=== PATIENT | female | born 1945 | race Two or more races ===

== ENCOUNTER 2022-09-19 09:30 | Inpatient (IN) | payer MEDICAID, OTHER ==
[~2022-09-19] VITALS: Ht 154.9 cm; Wt 70.9 kg
[2022-09-19 11:56] LABS: Basophils # (auto) 0 10 ^3/uL (0-0.2); Basophils % (auto) 0.3 % (0.0-2.0); Eosinophils # (auto) 0 10 ^3/uL (0-0.8); Eosinophils % (auto) 0.4 % (0.0-7.0); Hematocrit 49.9 % (36.0-46.0); Hemoglobin 16.9 g/dL (12.2-16.2); Lymphocytes # (auto) 1.4 10 ^3/uL (0.4-5.4); Lymphocytes % (auto) 11.4 % (10.0-50.0); Mean Corpuscular Hemoglobin 30.2 pg (28.0-32.0); Mean Corpuscular Hgb Conc. 33.9 g/dL (32.0-36.0); Monocytes # (auto) 0.4 10 ^3/uL (0-1.3); Monocytes % (auto) 3.3 % (0.0-12.0); Neutrophils # (auto) 10.4 10 ^3/uL (1.6-8.6); Neutrophils % (auto) 84.6 % (37.0-80.0); Nucleated Red Blood Cells % 0.1 %; Red Cell Distribution Width 13.4 % (11.8-14.3); White Blood Cell 12.3 10^3/uL (4.4-10.8)
[2022-09-19 12:19] LABS: Albumin 3.3 g/dL (3.4-5.0); Anion Gap 12 (5-15); Blood Urea Nitrogen 37 mg/dL (7-18); Calcium 9.1 mg/dL (8.5-10.1); Carbon Dioxide 17 mmol/L (21-32); Chloride 113 mmol/L (98-107); Glucose 162 mg/dL (74-106); Potassium 4.5 mmol/L (3.5-5.1); Sodium 142 mmol/L (136-145)
[2022-09-19 12:23] LABS: Alanine Aminotransferase 18 U/L (13-56); Alkaline Phosphatase 46 U/L (45-117); Aspartate Aminotransferase 19 U/L (15-37); BUN/Creatinine Ratio 15.7; Bilirubin, Total 0.3 mg/dL (0.2-1.0); GFR African American 26 mL/min; GFR Non-African American 21 mL/min; Total Protein 7.7 g/dL (6.4-8.2)
[2022-09-19] MEDS ORDERED: NITROGLYCERIN 0.4 MG SL TAB SL PRN (16:15)
[2022-09-19] MEDS ORDERED: MORPHINE SULFATE INJ 2 MG/ml SYRG IV PRN (16:15)
[2022-09-19] MEDS ORDERED: SODIUM CHLORIDE 0.9% 500 ML IV ONE (16:30)
[2022-09-19] MEDS ORDERED: ASPirin 81 mg TAB PO ONE (16:30)
[2022-09-19] MEDS ORDERED: SOD CHL 0.45% 1,000 ML IV SCH (16:30)
[2022-09-19] MEDS: SODIUM CHLORIDE 0.9% 1,000 ML IV SCH (17:07)
[2022-09-19 17:52] LABS: Urine Bacteria MANY /hpf (None Seen); Urine Blood 1+ /uL (Negative); Urine Mucus FEW (None Seen); Urine Specific Gravity 1.018 (1.001-1.035); Urine WBC 647 /hpf (0 - 5)
[2022-09-19 18:49] LABS: Cholesterol 168 mg/dL (< 200)
[2022-09-19 18:52] LABS: HDL Cholesterol 38 mg/dL (40-59); LDL Cholesterol 112 mg/dL (< 100); Triglycerides 162 mg/dL (< 150)
[2022-09-19] MEDS ORDERED: cefTRIAXone 1GM/50ML D5W 50 ML IV ONE (20:15)
[2022-09-19] MEDS: ATORVASTATIN 20 MG TAB PO SCH (23:04)
[2022-09-20] MEDS: SODIUM CHLORIDE 0.9% 1,000 ML IV SCH ×3 (03:00→21:21)
[2022-09-20 06:11] LABS: Basophils # (auto) 0 10 ^3/uL (0-0.2); Basophils % (auto) 0.4 % (0.0-2.0); Eosinophils # (auto) 0.1 10 ^3/uL (0-0.8); Eosinophils % (auto) 1.1 % (0.0-7.0); Hematocrit 37.2 % (36.0-46.0); Hemoglobin 13.1 g/dL (12.2-16.2); Lymphocytes # (auto) 2.2 10 ^3/uL (0.4-5.4); Lymphocytes % (auto) 33.7 % (10.0-50.0); Mean Corpuscular Hemoglobin 30.7 pg (28.0-32.0); Mean Corpuscular Hgb Conc. 35.2 g/dL (32.0-36.0); Mean Corpuscular Volume 87.3 fL (80.0-100.0); Monocytes # (auto) 0.4 10 ^3/uL (0-1.3); Monocytes % (auto) 6.4 % (0.0-12.0); Neutrophils # (auto) 3.8 10 ^3/uL (1.6-8.6); Neutrophils % (auto) 58.4 % (37.0-80.0); Nucleated Red Blood Cells % 0.1 %; Red Blood Cells 4.26 10^6/uL (4.0-5.20); Red Cell Distribution Width 13.3 % (11.8-14.3); White Blood Cell 6.5 10^3/uL (4.4-10.8)
[2022-09-20 06:25] LABS: Albumin 3.2 g/dL (3.4-5.0); Calcium 8.7 mg/dL (8.5-10.1); Potassium 3.7 mmol/L (3.5-5.1)
[2022-09-20 06:30] LABS: Bilirubin, Total 0.5 mg/dL (0.2-1.0); Total Protein 7.2 g/dL (6.4-8.2)
[2022-09-20] MEDS ORDERED: LORazepam 2MG/ML-1ML VIAL IV PRN (09:45)
[2022-09-20] MEDS ORDERED: MEMANTINE HCL 5 MG TAB PO SCH (10:00)
[2022-09-20 10:08] LABS: Folate (Folic Acid) 8.24 ng/mL (5.38-24)
[2022-09-20] MEDS: ENOXAPARIN SOD 30 MG/0.3 ML SYRINGE SC SCH (10:23)
[2022-09-20] MEDS: ASPirin 81 mg TAB PO SCH (10:23)
[2022-09-20] MEDS: cefTRIAXone 1GM/50ML D5W 50 ML IV SCH (21:20)
[2022-09-20] MEDS: ATORVASTATIN 20 MG TAB PO SCH (21:21)
[2022-09-20] MEDS: TEMAZEPAM 15 MG CAP PO PRN (21:54)
[2022-09-20] MEDS ORDERED: LISI40TA11 PO (22:05)
[2022-09-20] MEDS ORDERED: MEMA1TAB5 PO (22:05)
[2022-09-20] MEDS ORDERED: ATOR20TA50 PO (22:05)
[2022-09-20] MEDS ORDERED: DONE1TAB88 PO (22:05)
[2022-09-20] MEDS ORDERED: ESCI20TA PO (22:05)
[2022-09-21 05:00] VITALS: BP 141/84
[2022-09-21 05:37] LABS: Basophils # (auto) 0 10 ^3/uL (0-0.2); Basophils % (auto) 0.3 % (0.0-2.0); Eosinophils # (auto) 0.2 10 ^3/uL (0-0.8); Eosinophils % (auto) 3.3 % (0.0-7.0); Hematocrit 39.3 % (36.0-46.0); Hemoglobin 13.4 g/dL (12.2-16.2); Lymphocytes # (auto) 2.7 10 ^3/uL (0.4-5.4); Lymphocytes % (auto) 41.9 % (10.0-50.0); Mean Corpuscular Hemoglobin 30.3 pg (28.0-32.0); Mean Corpuscular Hgb Conc. 34.1 g/dL (32.0-36.0); Mean Corpuscular Volume 88.9 fL (80.0-100.0); Monocytes # (auto) 0.5 10 ^3/uL (0-1.3); Monocytes % (auto) 7.1 % (0.0-12.0); Neutrophils # (auto) 3.1 10 ^3/uL (1.6-8.6); Neutrophils % (auto) 47.4 % (37.0-80.0); Nucleated Red Blood Cells % 0.1 %; Red Blood Cells 4.42 10^6/uL (4.0-5.20); Red Cell Distribution Width 13.1 % (11.8-14.3); White Blood Cell 6.5 10^3/uL (4.4-10.8)
[2022-09-21 05:58] LABS: Potassium 4.1 mmol/L (3.5-5.1)
[2022-09-21 06:06] LABS: Albumin 3.3 g/dL (3.4-5.0); Bilirubin, Total 0.4 mg/dL (0.2-1.0); Total Protein 7.2 g/dL (6.4-8.2)
[2022-09-21 09:00] VITALS: BP 146/85
[2022-09-21] MEDS: ASPirin 81 mg TAB PO SCH (09:06)
[2022-09-21] MEDS: ENOXAPARIN SOD 30 MG/0.3 ML SYRINGE SC SCH (09:07)
[2022-09-21] MEDS: SODIUM CHLORIDE 0.9% 1,000 ML IV SCH (09:07)
[2022-09-21 12:40] VITALS: BP 136/59
[2022-09-21 16:44] VITALS: BP 144/60
[2022-09-21] MEDS: TEMAZEPAM 15 MG CAP PO PRN (19:51)
[2022-09-21] MEDS: ATORVASTATIN 20 MG TAB PO SCH (21:02)
[2022-09-21] MEDS: cefTRIAXone 1GM/50ML D5W 50 ML IV SCH (21:25)
[2022-09-22] MEDS: SODIUM CHLORIDE 0.9% 1,000 ML IV SCH ×3 (02:00→10:41)
[2022-09-22 05:00] VITALS: BP 140/70
[2022-09-22 05:57] LABS: Basophils # (auto) 0 10 ^3/uL (0-0.2); Basophils % (auto) 0.3 % (0.0-2.0); Eosinophils # (auto) 0.3 10 ^3/uL (0-0.8); Eosinophils % (auto) 4.1 % (0.0-7.0); Hematocrit 36.3 % (36.0-46.0); Hemoglobin 12.6 g/dL (12.2-16.2); Lymphocytes # (auto) 3.1 10 ^3/uL (0.4-5.4); Lymphocytes % (auto) 45.4 % (10.0-50.0); Mean Corpuscular Hemoglobin 30.5 pg (28.0-32.0); Mean Corpuscular Hgb Conc. 34.8 g/dL (32.0-36.0); Mean Corpuscular Volume 87.6 fL (80.0-100.0); Monocytes # (auto) 0.5 10 ^3/uL (0-1.3); Monocytes % (auto) 7.1 % (0.0-12.0); Neutrophils % (auto) 43.1 % (37.0-80.0); Nucleated Red Blood Cells % 0.2 %; Red Blood Cells 4.14 10^6/uL (4.0-5.20); White Blood Cell 6.9 10^3/uL (4.4-10.8)
[2022-09-22 06:24] LABS: Calcium 8.3 mg/dL (8.5-10.1)
[2022-09-22 06:28] LABS: Albumin 2.9 g/dL (3.4-5.0); BUN/Creatinine Ratio 19.2; Bilirubin, Total 0.2 mg/dL (0.2-1.0); Total Protein 6.1 g/dL (6.4-8.2)
[2022-09-22 08:55] VITALS: BP 140/77
[2022-09-22] MEDS: ASPirin 81 mg TAB PO SCH (10:00)
[2022-09-22] MEDS: ENOXAPARIN SOD 40 MG/0.4 ML SYRINGE SC SCH (10:00)
[2022-09-22 12:48] VITALS: BP 150/73
[2022-09-22 16:58] VITALS: BP 130/63
[2022-09-22] MEDS: cefTRIAXone 1GM/50ML D5W 50 ML IV SCH (21:13)
[2022-09-22] MEDS: ATORVASTATIN 20 MG TAB PO SCH (21:32)
[2022-09-22 22:00] VITALS: BP 131/62
[2022-09-23 04:00] VITALS: BP 148/68
[2022-09-23] MEDS: SODIUM CHLORIDE 0.9% 1,000 ML IV SCH ×2 (04:45→09:48)
[2022-09-23 05:26] LABS: Basophils # (auto) 0 10 ^3/uL (0-0.2); Basophils % (auto) 0.3 % (0.0-2.0); Eosinophils # (auto) 0.3 10 ^3/uL (0-0.8); Eosinophils % (auto) 4.9 % (0.0-7.0); Hemoglobin 12.4 g/dL (12.2-16.2); Lymphocytes # (auto) 3.1 10 ^3/uL (0.4-5.4); Lymphocytes % (auto) 45.6 % (10.0-50.0); Mean Corpuscular Hemoglobin 30.4 pg (28.0-32.0); Mean Corpuscular Hgb Conc. 34.3 g/dL (32.0-36.0); Mean Corpuscular Volume 88.4 fL (80.0-100.0); Monocytes # (auto) 0.5 10 ^3/uL (0-1.3); Monocytes % (auto) 6.7 % (0.0-12.0); Neutrophils # (auto) 2.8 10 ^3/uL (1.6-8.6); Neutrophils % (auto) 42.5 % (37.0-80.0); Nucleated Red Blood Cells % 0.1 %; Red Blood Cells 4.07 10^6/uL (4.0-5.20); White Blood Cell 6.7 10^3/uL (4.4-10.8)
[2022-09-23 05:59] LABS: Potassium 4.1 mmol/L (3.5-5.1)
[2022-09-23 06:05] LABS: Albumin 2.9 g/dL (3.4-5.0); Bilirubin, Total 0.4 mg/dL (0.2-1.0); Calcium 8.6 mg/dL (8.5-10.1); Total Protein 6.1 g/dL (6.4-8.2)
[2022-09-23 08:30] VITALS: BP 154/72
[2022-09-23] MEDS ORDERED: VANCOMYCIN PER PHARMACY 0 MG IV SCH (08:30)
[2022-09-23] MEDS ORDERED: VANCOMYCIN 1GM/250ML 250 ML IV SCH (09:00)
[2022-09-23] MEDS: ENOXAPARIN SOD 40 MG/0.4 ML SYRINGE SC SCH (09:44)
[2022-09-23] MEDS: ASPirin 81 mg TAB PO SCH (09:44)
[2022-09-23 13:00] VITALS: BP 147/74
[2022-09-23] MEDS ORDERED: ASPI-325 PO (14:30)
[2022-09-23] MEDS ORDERED: ESCI20TA PO (14:30)
[2022-09-23] MEDS ORDERED: LISI40TA11 PO (14:30)
[2022-09-23] MEDS ORDERED: ATOR20TA50 PO (14:30)
[2022-09-23] MEDS ORDERED: LEVE500T32 PO (14:33)
[2022-09-24] MEDS ORDERED: CITALOPRAM HYDROBR 20 MG TAB PO SCH (10:00)
== END 2022-09-23 17:00 | disposition home or self-care (01) | DRG 53 ==
LOC: EDBD 09:30 → ER 09:30 → TELE 16:15 → TELE-EAST 20:56
PROVIDERS: ADMIT Registered Nurse; ATTEND Student in an Organized Health Care Education/Training Program
DX: R56.9 Unspecified convulsions (principal); I63.89 Other cerebral infarction; N17.9 Acute kidney failure, unspecified; I95.9 Hypotension, unspecified; R65.10 Systemic inflammatory response syndrome (SIRS) of non-infectious origin without acute organ dysfunction; G30.9 Alzheimer's disease, unspecified; F02.80 Dementia in other diseases classified elsewhere, unspecified severity, without behavioral disturbance, psychotic disturbance, mood disturbance, and anxiety; N18.4 Chronic kidney disease, stage 4 (severe); R00.1 Bradycardia, unspecified; E86.0 Dehydration; E78.5 Hyperlipidemia, unspecified; I12.9 Hypertensive chronic kidney disease with stage 1 through stage 4 chronic kidney disease, or unspecified chronic kidney disease; R73.9 Hyperglycemia, unspecified; Z20.822 Contact with and (suspected) exposure to COVID-19; B96.20 Unspecified Escherichia coli [E. coli] as the cause of diseases classified elsewhere; N39.0 Urinary tract infection, site not specified; R73.03 Prediabetes; Z79.899 Other long term (current) drug therapy; Z86.73 Personal history of transient ischemic attack (TIA), and cerebral infarction without residual deficits; Z90.710 Acquired absence of both cervix and uterus
CPT/HCPCS: 36415; 70450; 70551; 71045; 80053; 80061; 81001; 82607; 82746; 83036; 84443; 85025; 87040; 87086; 87088; 87186; 87205; 87426; 93005; 93306; 93886; 95819; G0378; J0696

== ENCOUNTER 2023-03-18 19:39 | Inpatient (IN) | payer MEDICAID ==
[~2023-03-18] VITALS: Ht 157.5 cm; Wt 70.8 kg
[~2023-03-18 19:39] MED LIST: ASPI-325 PO; ATOR20TA50 PO; ESCI20TA PO; LEVE500T40 PO; LISI40TA16 PO
[2023-03-18 20:27] LABS: Basophils # (auto) 0 10 ^3/uL (0-0.2); Basophils % (auto) 0.1 % (0.0-2.0); Eosinophils # (auto) 0.1 10 ^3/uL (0-0.8); Eosinophils % (auto) 0.4 % (0.0-7.0); Hematocrit 49.2 % (36.0-46.0); Hemoglobin 16.4 g/dL (12.2-16.2); Lymphocytes # (auto) 3.7 10 ^3/uL (0.4-5.4); Lymphocytes % (auto) 24.2 % (10.0-50.0); Mean Corpuscular Hemoglobin 30.2 pg (28.0-32.0); Mean Corpuscular Hgb Conc. 33.3 g/dL (32.0-36.0); Mean Corpuscular Volume 90.9 fL (80.0-100.0); Monocytes # (auto) 0.7 10 ^3/uL (0-1.3); Monocytes % (auto) 4.5 % (0.0-12.0); Neutrophils # (auto) 10.9 10 ^3/uL (1.6-8.6); Neutrophils % (auto) 70.8 % (37.0-80.0); Nucleated Red Blood Cells % 0.1 %; Red Blood Cells 5.42 10^6/uL (4.0-5.20); Red Cell Distribution Width 14.4 % (11.8-14.3); White Blood Cell 15.5 10^3/uL (4.4-10.8)
[2023-03-18 20:42] LABS: Albumin 3.3 g/dL (3.4-5.0); Calcium 8.7 mg/dL (8.5-10.1); Potassium 3.7 mmol/L (3.5-5.1)
[2023-03-18 20:46] LABS: Bilirubin, Total 0.6 mg/dL (0.2-1.0); Total Protein 7.6 g/dL (6.4-8.2)
[2023-03-18] MEDS ORDERED: PIPERACILLIN-TAZOB 3.375GM 100 ML IV ONE (21:00)
[2023-03-18] MEDS ORDERED: MAGNESIUM SULFATE 1GM/100ML 100 ML IV ONE (21:00)
[2023-03-18] MEDS ORDERED: VANCOMYCIN 1GM/250ML 250 ML IV ONE (21:00)
[2023-03-18] MEDS ORDERED: LACTATED RINGER'S 1,900 ML IV ONE (21:00)
[2023-03-18 22:14] LABS: Lactic Acid w/Reflex 2.7 mmol/L (0.4-2.0)
[2023-03-18] MEDS ORDERED: ONDANSETRON HCL 4 MG/2 ML VIAL IV PRN (22:15)
[2023-03-18] MEDS ORDERED: DOCUSATE SOD 100 MG CAP PO PRN (22:15)
[2023-03-18] MEDS ORDERED: VANCOMYCIN PER PHARMACY 0 MG IV SCH (22:15)
[2023-03-18] MEDS ORDERED: HYDROcodone-ACET 5/325MG TAB PO PRN (22:15)
[2023-03-18] MEDS ORDERED: ACETAMINOPHEN 325 MG TAB PO PRN (22:15)
[2023-03-18] MEDS ORDERED: levETIRAcetam 500 MG/5ML INJ IV ONE ×2 (22:36→22:40)
[2023-03-18] MEDS ORDERED: LORazepam 2MG/ML-1ML VIAL IV PRN (23:00)
[2023-03-18] MEDS ORDERED: OXcarbazepine 300 MG TAB PO ONE (23:45)
[2023-03-19] MEDS ORDERED: MORPHINE SULFATE INJ 2 MG/ml SYRG IV PRN
[2023-03-19] MEDS ORDERED: OXcarbazepine 300 MG TAB PO ONE
[2023-03-19] MEDS ORDERED: NITROGLYCERIN 0.4 MG SL TAB SL PRN
[2023-03-19 00:50] VITALS: PULSE 51; RESP 15; O2SAT 96
[2023-03-19] MEDS: LACTATED RINGER'S 1,000 ML IV SCH ×2 (02:16→12:48)
[2023-03-19 07:06] LABS: Basophils # (auto) 0 10 ^3/uL (0-0.2); Basophils % (auto) 0.2 % (0.0-2.0); Eosinophils # (auto) 0 10 ^3/uL (0-0.8); Eosinophils % (auto) 0.3 % (0.0-7.0); Hematocrit 39.7 % (36.0-46.0); Hemoglobin 13.4 g/dL (12.2-16.2); Lymphocytes # (auto) 2.6 10 ^3/uL (0.4-5.4); Lymphocytes % (auto) 22.6 % (10.0-50.0); Mean Corpuscular Hemoglobin 30.1 pg (28.0-32.0); Mean Corpuscular Hgb Conc. 33.7 g/dL (32.0-36.0); Mean Corpuscular Volume 89.5 fL (80.0-100.0); Monocytes # (auto) 0.6 10 ^3/uL (0-1.3); Monocytes % (auto) 5.7 % (0.0-12.0); Neutrophils % (auto) 71.2 % (37.0-80.0); Nucleated Red Blood Cells % 0.1 %; Red Blood Cells 4.43 10^6/uL (4.0-5.20); White Blood Cell 11.3 10^3/uL (4.4-10.8)
[2023-03-19 07:35] VITALS: PULSE 51; RESP 21; O2SAT 96
[2023-03-19 07:58] LABS: Calcium 7.6 mg/dL (8.5-10.1); Potassium 3.6 mmol/L (3.5-5.1)
[2023-03-19 08:03] LABS: Albumin 2.5 g/dL (3.4-5.0); Bilirubin, Total 0.8 mg/dL (0.2-1.0); Total Protein 5.8 g/dL (6.4-8.2)
[2023-03-19] MEDS: cefTRIAXone 1GM/50ML D5W 50 ML IV SCH (09:25)
[2023-03-19] MEDS: ASPirin 81 mg TAB PO SCH (11:28)
[2023-03-19] MEDS: OXcarbazepine 300 MG TAB PO SCH ×2 (11:28→22:40)
[2023-03-19 12:39] LABS: Urine Bacteria FEW /hpf (None Seen); Urine Blood 2+ /uL (Negative); Urine Budding Yeast MODERATE /hpf (None Seen); Urine Clarity CLOUDY (Clear); Urine Color Yellow (Yellow); Urine Protein, UAD 1+ (Negative); Urine Specific Gravity 1.018 (1.001-1.035); Urine Urobilinogen Normal (Negative); Urine WBC 1395 /hpf (0 - 5); Urine WBC Clumps PRESENT /hpf (None Seen)
[2023-03-19] MEDS ORDERED: VANCOMYCIN 500 MG in D5W 5% 100 ML IV ONE (16:00)
[2023-03-19 22:02] VITALS: BP 119/68; PULSE 72; RESP 18; TEMP 98; O2SAT 98
[2023-03-19 22:32] VITALS: BP 119/68; PULSE 72; RESP 18; TEMP 98; O2SAT 68
[2023-03-20] MEDS: LACTATED RINGER'S 1,000 ML IV SCH ×3 (00:55→23:31)
[2023-03-20 05:00] VITALS: BP 142/84; PULSE 55; RESP 18; TEMP 97.9; O2SAT 97
[2023-03-20 08:00] VITALS: PULSE 47
[2023-03-20] MEDS: ASPirin 81 mg TAB PO SCH (10:18)
[2023-03-20] MEDS: OXcarbazepine 300 MG TAB PO SCH ×2 (10:18→22:03)
[2023-03-20] MEDS: cefTRIAXone 1GM/50ML D5W 50 ML IV SCH (11:23)
[2023-03-20 19:50] VITALS: PULSE 64
[2023-03-20 21:36] VITALS: BP 137/71; PULSE 60; RESP 20; TEMP 98.3; O2SAT 95
[2023-03-21] VITALS (10 sets, daily range): BP systolic 130–178; BP diastolic 65–99; PULSE 49–64; RESP 18–22; TEMP 97.6–98.7; O2SAT 96–99
[2023-03-21] MEDS: OXcarbazepine 300 MG TAB PO SCH (09:41)
[2023-03-21] MEDS: cefTRIAXone 1GM/50ML D5W 50 ML IV SCH (09:41)
[2023-03-21] MEDS: ASPirin 81 mg TAB PO SCH (09:41)
[2023-03-21] MEDS: LISINOPRIL 20 MG TAB PO SCH (09:50)
[2023-03-21] MEDS: amLODIPine BESYLATE 5 MG TAB PO SCH (13:09)
[2023-03-21 13:53] LABS: Basophils # (auto) 0 10 ^3/uL (0-0.2); Basophils % (auto) 0.3 % (0.0-2.0); Eosinophils # (auto) 0.2 10 ^3/uL (0-0.8); Eosinophils % (auto) 2.5 % (0.0-7.0); Hematocrit 39.1 % (36.0-46.0); Hemoglobin 13.5 g/dL (12.2-16.2); Lymphocytes # (auto) 2.7 10 ^3/uL (0.4-5.4); Lymphocytes % (auto) 39.9 % (10.0-50.0); Mean Corpuscular Hemoglobin 30.3 pg (28.0-32.0); Mean Corpuscular Hgb Conc. 34.6 g/dL (32.0-36.0); Mean Corpuscular Volume 87.4 fL (80.0-100.0); Monocytes # (auto) 0.4 10 ^3/uL (0-1.3); Monocytes % (auto) 6.4 % (0.0-12.0); Neutrophils # (auto) 3.5 10 ^3/uL (1.6-8.6); Neutrophils % (auto) 50.9 % (37.0-80.0); Nucleated Red Blood Cells % 0.1 %; Red Blood Cells 4.48 10^6/uL (4.0-5.20); Red Cell Distribution Width 13.6 % (11.8-14.3); White Blood Cell 6.9 10^3/uL (4.4-10.8)
[2023-03-21 16:09] LABS: Alanine Aminotransferase 13 U/L (7-40); Albumin 2.8 g/dL (3.4-5.0); Anion Gap 8 (5-15); Blood Urea Nitrogen 13 mg/dL (7-18); Calcium 8.3 mg/dL (8.7-10.4); Carbon Dioxide 20 mmol/L (21-32); Chloride 114 mmol/L (98-107); Glucose 98 mg/dL (74-106); Potassium 4.4 mmol/L (3.5-5.1); Sodium 142 mmol/L (136-145)
[2023-03-21 16:10] LABS: Alkaline Phosphatase 66 U/L (45-117); Aspartate Aminotransferase 30 U/L (15-37); BUN/Creatinine Ratio 12.5 (10.0-20.0); Bilirubin, Total 0.6 mg/dL (0.2-1.0); GFR African American 66 mL/min; GFR Non-African American 55 mL/min; Total Protein 6.3 g/dL (6.4-8.2)
[2023-03-21] MEDS: LACTATED RINGER'S 1,000 ML IV SCH (20:53)
[2023-03-21] MEDS: DONEPEZIL HYDROCHLORIDE 5 MG TAB PO SCH (21:40)
[2023-03-21] MEDS: ATORVASTATIN 20 MG TAB PO SCH (21:41)
[2023-03-21] MEDS: MEMANTINE HCL 5 MG TAB PO SCH (21:41)
[2023-03-22 05:00] VITALS: BP 169/79; PULSE 51; RESP 18; TEMP 98; O2SAT 96
[2023-03-22] MEDS: LACTATED RINGER'S 1,000 ML IV SCH (06:15)
[2023-03-22 08:00] VITALS: PULSE 45
[2023-03-22 09:17] LABS: Basophils # (auto) 0 10 ^3/uL (0-0.2); Basophils % (auto) 0.4 % (0.0-2.0); Eosinophils # (auto) 0.2 10 ^3/uL (0-0.8); Eosinophils % (auto) 3.3 % (0.0-7.0); Hematocrit 43.6 % (36.0-46.0); Lymphocytes # (auto) 2.6 10 ^3/uL (0.4-5.4); Lymphocytes % (auto) 36.6 % (10.0-50.0); Mean Corpuscular Hemoglobin 30.4 pg (28.0-32.0); Mean Corpuscular Hgb Conc. 34.4 g/dL (32.0-36.0); Mean Corpuscular Volume 88.2 fL (80.0-100.0); Monocytes # (auto) 0.4 10 ^3/uL (0-1.3); Monocytes % (auto) 5.4 % (0.0-12.0); Neutrophils # (auto) 3.9 10 ^3/uL (1.6-8.6); Neutrophils % (auto) 54.3 % (37.0-80.0); Nucleated Red Blood Cells % 0.2 %; Red Blood Cells 4.94 10^6/uL (4.0-5.20); Red Cell Distribution Width 13.4 % (11.8-14.3); White Blood Cell 7.2 10^3/uL (4.4-10.8)
[2023-03-22] MEDS: cefTRIAXone 1GM/50ML D5W 50 ML IV SCH (09:20)
[2023-03-22] MEDS: LISINOPRIL 20 MG TAB PO SCH (09:23)
[2023-03-22] MEDS: MEMANTINE HCL 5 MG TAB PO SCH ×2 (09:24→21:08)
[2023-03-22] MEDS: ASPirin 81 mg TAB PO SCH (09:24)
[2023-03-22] MEDS: amLODIPine BESYLATE 5 MG TAB PO SCH (09:24)
[2023-03-22 09:55] LABS: Potassium 3.7 mmol/L (3.5-5.1)
[2023-03-22 10:00] LABS: BUN/Creatinine Ratio 11.9 (10.0-20.0); Calcium 8.8 mg/dL (8.7-10.4)
[2023-03-22 17:00] VITALS: BP 151/78; PULSE 66; RESP 17; TEMP 98.1; O2SAT 94
[2023-03-22 19:30] VITALS: PULSE 68; RESP 17
[2023-03-22 20:00] VITALS: PULSE 67
[2023-03-22] MEDS: DONEPEZIL HYDROCHLORIDE 5 MG TAB PO SCH (21:08)
[2023-03-22] MEDS: ATORVASTATIN 20 MG TAB PO SCH (21:09)
[2023-03-22 22:00] VITALS: BP 159/79; PULSE 63; RESP 20; TEMP 98; O2SAT 94
[2023-03-23 05:00] VITALS: BP 166/81; PULSE 54; RESP 18; TEMP 97.9; O2SAT 95
[2023-03-23 07:48] VITALS: RESP 16
[2023-03-23 08:00] VITALS: PULSE 52
[2023-03-23 09:00] VITALS: BP 156/81; PULSE 60; RESP 17; TEMP 98.2; O2SAT 96
[2023-03-23] MEDS: cefTRIAXone 1GM/50ML D5W 50 ML IV SCH (09:31)
[2023-03-23] MEDS: ASPirin 81 mg TAB PO SCH (09:31)
[2023-03-23] MEDS: MEMANTINE HCL 5 MG TAB PO SCH (09:32)
[2023-03-23] MEDS: amLODIPine BESYLATE 5 MG TAB PO SCH (09:33)
[2023-03-23] MEDS: LISINOPRIL 20 MG TAB PO SCH (09:34)
[2023-03-23] MEDS ORDERED: AMLO1TAB23 PO (09:39)
[2023-03-23] MEDS ORDERED: ATOR40TA52 PO (09:43)
[2023-03-23] MEDS ORDERED: DONE5TAB80 PO (09:43)
[2023-03-23] MEDS ORDERED: MEMA1TAB5 PO (09:44)
== END 2023-03-23 13:30 | disposition home or self-care (01) | DRG 53 ==
LOC: EDBD 19:39 → ER 19:39 → TELE 23:58 → TELE-CENTR 03-19 21:33 → TELE-E-ADS 03-20 20:08
PROVIDERS: ADMIT Internal Medicine Pulmonary Disease
DX: G40.909 Epilepsy, unspecified, not intractable, without status epilepticus (principal); G93.41 Metabolic encephalopathy; N17.9 Acute kidney failure, unspecified; E87.0 Hyperosmolality and hypernatremia; G30.9 Alzheimer's disease, unspecified; F02.80 Dementia in other diseases classified elsewhere, unspecified severity, without behavioral disturbance, psychotic disturbance, mood disturbance, and anxiety; G93.89 Other specified disorders of brain; R73.9 Hyperglycemia, unspecified; J32.0 Chronic maxillary sinusitis; E78.5 Hyperlipidemia, unspecified; N39.0 Urinary tract infection, site not specified; I10 Essential (primary) hypertension; E86.0 Dehydration; F17.200 Nicotine dependence, unspecified, uncomplicated; R00.1 Bradycardia, unspecified; Z86.73 Personal history of transient ischemic attack (TIA), and cerebral infarction without residual deficits; Z79.899 Other long term (current) drug therapy; Z81.8 Family history of other mental and behavioral disorders; Z90.710 Acquired absence of both cervix and uterus; Z79.82 Long term (current) use of aspirin
CPT/HCPCS: 36415; 70450; 71045; 80048; 80053; 80202; 81001; 82542; 82565; 83036; 83605; 83880; 84484; 85025; 87040; 93005; 95819; 96365; 96368; 97110; 97116; 97163; 97530; G0378; J0696; J2543; J7060

== ENCOUNTER 2023-09-22 17:01 | Inpatient (IN) | payer MEDICAID ==
[~2023-09-22] VITALS: Ht 162.6 cm; Wt 67.2 kg
[~2023-09-22 17:01] MED LIST changes: +AMLO1TAB23 PO; -ATOR20TA50 PO; +ATOR40TA52 PO; +CLOT1CRE51 TOP; +DONE5TAB80 PO; +GENT0.3S10 OP; -LEVE500T40 PO; +MEMA1TAB5 PO; +MIRT-94 PO
[2023-09-22 18:26] VITALS: PULSE 60; RESP 19; O2SAT 94
[2023-09-22 19:00] LABS: Basophils # (auto) 0 10 ^3/uL (0-0.2); Basophils % (auto) 0.3 % (0.0-2.0); Eosinophils # (auto) 0.1 10 ^3/uL (0-0.8); Eosinophils % (auto) 0.3 % (0.0-7.0); Hematocrit 48.4 % (36.0-46.0); Lymphocytes # (auto) 2.1 10 ^3/uL (0.4-5.4); Mean Corpuscular Hemoglobin 28.8 pg (28.0-32.0); Mean Corpuscular Volume 87.4 fL (80.0-100.0); Monocytes # (auto) 0.4 10 ^3/uL (0-1.3); Monocytes % (auto) 2.9 % (0.0-12.0); Neutrophils # (auto) 12.3 10 ^3/uL (1.6-8.6); Neutrophils % (auto) 82.5 % (37.0-80.0); Nucleated Red Blood Cells % 0.1 %; Red Blood Cells 5.53 10^6/uL (4.0-5.20); Red Cell Distribution Width 14.1 % (11.8-14.3); White Blood Cell 14.9 10^3/uL (4.4-10.8)
[2023-09-22 19:16] LABS: Alanine Aminotransferase 21 U/L (7-40); Alkaline Phosphatase 103 U/L (46-116); Anion Gap 8 (5-15); Aspartate Aminotransferase 21 U/L (13-40); BUN/Creatinine Ratio 16.8 (10.0-20.0); Bilirubin, Total 0.8 mg/dL (0.2-1.0); Blood Urea Nitrogen 24 mg/dL (9-23); Calcium 9.2 mg/dL (8.7-10.4); Carbon Dioxide 26 mmol/L (20-30); Chloride 107 mmol/L (98-107); Glucose 141 mg/dL (74-106); Magnesium 1.6 mg/dL (1.6-2.6); Sodium 141 mmol/L (136-145); Total Protein 7.3 g/dL (5.7-8.2)
[2023-09-22 20:00] VITALS: PULSE 68; RESP 16; O2SAT 94
[2023-09-22] MEDS: SODIUM CHLORIDE 0.9% 500 ML IV ONE (20:35)
[2023-09-22 20:38] LABS: Urine Bacteria MANY /hpf (None Seen); Urine Blood 2+ /uL (Negative); Urine Clarity CLOUDY (Clear); Urine Color Yellow (Yellow); Urine Mucus FEW (None Seen); Urine Protein, UAD 2+ (Negative); Urine Urobilinogen Normal (Negative); Urine WBC 3311 /hpf (0 - 5); Urine WBC Clumps PRESENT /hpf (None Seen); Urine pH 5.5 (5.0-8.0)
[2023-09-22] MEDS: cefTRIAXone 1GM/50ML D5W 50 ML IV ONE (21:01)
[2023-09-22] MEDS: ONDANSETRON HCL 4 MG/2 ML VIAL IV ONE (22:30)
[2023-09-22] MEDS ORDERED: NITROGLYCERIN 0.4 MG SL TAB SL PRN (22:45)
[2023-09-22] MEDS ORDERED: MORPHINE SULFATE INJ 2 MG/ml SYRG IV PRN (22:45)
[2023-09-22] MEDS ORDERED: ACETAMINOPHEN 325 MG TAB PO PRN (22:45)
[2023-09-22] MEDS ORDERED: HYDROcodone-ACET 5/325MG TAB PO PRN (22:45)
[2023-09-22] MEDS ORDERED: ONDANSETRON HCL 4 MG/2 ML VIAL IV PRN (22:45)
[2023-09-22] MEDS ORDERED: DOCUSATE SOD 100 MG CAP PO PRN (22:45)
[2023-09-22] MEDS: SODIUM CHLORIDE 0.9% 1,000 ML IV SCH (23:51)
[2023-09-23] VITALS (8 sets, daily range): BP systolic 114–130; BP diastolic 63–72; PULSE 57–80; RESP 15–20; TEMP 97.5–98.9; O2SAT 94–98
[2023-09-23] MEDS: SODIUM CHLOR 0.9% PF (SALINE LOCK) 10ML VIAL/SYR IV SCH (06:30)
[2023-09-23 06:34] LABS: Alanine Aminotransferase 12 U/L (7-40); Albumin 3.7 g/dL (3.2-4.8); Alkaline Phosphatase 89 U/L (46-116); Anion Gap 10 (5-15); Aspartate Aminotransferase 20 U/L (13-40); Bilirubin, Total 0.9 mg/dL (0.2-1.0); Blood Urea Nitrogen 20 mg/dL (9-23); Calcium 9.2 mg/dL (8.5-10.1); Carbon Dioxide 22 mmol/L (20-30); Chloride 112 mmol/L (98-107); Glucose 100 mg/dL (74-106); Sodium 144 mmol/L (136-145)
[2023-09-23 06:47] LABS: Basophils # (auto) 0.1 10 ^3/uL (0-0.2); Basophils % (auto) 0.4 % (0.0-2.0); Eosinophils # (auto) 0.1 10 ^3/uL (0-0.8); Eosinophils % (auto) 0.6 % (0.0-7.0); Hematocrit 42.1 % (36.0-46.0); Hemoglobin 13.7 g/dL (12.2-16.2); Lymphocytes # (auto) 4.6 10 ^3/uL (0.4-5.4); Lymphocytes % (auto) 36.6 % (10.0-50.0); Mean Corpuscular Hemoglobin 28.7 pg (28.0-32.0); Mean Corpuscular Hgb Conc. 32.6 g/dL (32.0-36.0); Mean Corpuscular Volume 88.1 fL (80.0-100.0); Monocytes # (auto) 0.7 10 ^3/uL (0-1.3); Monocytes % (auto) 5.3 % (0.0-12.0); Neutrophils # (auto) 7.1 10 ^3/uL (1.6-8.6); Neutrophils % (auto) 57.1 % (37.0-80.0); Nucleated Red Blood Cells % 0.1 %; Red Blood Cells 4.78 10^6/uL (4.0-5.20); Red Cell Distribution Width 13.8 % (11.8-14.3); White Blood Cell 12.5 10^3/uL (4.4-10.8)
[2023-09-23] MEDS: MEMANTINE HCL 5 MG TAB PO SCH (08:14)
[2023-09-23] MEDS: BY MOUTH DAILY PO SCH (10:00)
[2023-09-23] MEDS: ESCITALOPRAM OXALATE 10 MG PO SCH (10:00)
[2023-09-23] MEDS: amLODIPine BESYLATE 5 MG TAB PO SCH (10:18)
[2023-09-23] MEDS: ASPirin-EC 81 mg tab PO SCH (10:18)
[2023-09-23] MEDS: LISINOPRIL 20 MG TAB PO SCH (10:22)
[2023-09-23] MEDS ORDERED: ESCI10TA PO (16:12)
[2023-09-23] MEDS ORDERED: HYDR-3682 PO (16:14)
[2023-09-23] MEDS: cefTRIAXone 1GM/50ML D5W 50 ML IV SCH (21:19)
[2023-09-23] MEDS: ATORVASTATIN 20 MG TAB PO SCH (21:19)
[2023-09-23] MEDS: DONEPEZIL HYDROCHLORIDE 5 MG TAB PO SCH (21:20)
[2023-09-24 04:46] VITALS: BP 132/68; PULSE 75; RESP 18; TEMP 97.5; O2SAT 94
[2023-09-24 08:00] VITALS: PULSE 71; PULSE 76; RESP 16; O2SAT 96
[2023-09-24 09:00] VITALS: BP 124/58; PULSE 62; RESP 18; TEMP 98; O2SAT 96
[2023-09-24 11:33] LABS: Basophils # (auto) 0 10 ^3/uL (0-0.2); Basophils % (auto) 0.4 % (0.0-2.0); Eosinophils # (auto) 0.1 10 ^3/uL (0-0.8); Eosinophils % (auto) 0.8 % (0.0-7.0); Hematocrit 45.1 % (36.0-46.0); Hemoglobin 14.9 g/dL (12.2-16.2); Lymphocytes # (auto) 2.5 10 ^3/uL (0.4-5.4); Lymphocytes % (auto) 24.6 % (10.0-50.0); Mean Corpuscular Hemoglobin 29.4 pg (28.0-32.0); Mean Corpuscular Volume 89.1 fL (80.0-100.0); Monocytes # (auto) 0.5 10 ^3/uL (0-1.3); Monocytes % (auto) 4.8 % (0.0-12.0); Neutrophils % (auto) 69.4 % (37.0-80.0); Nucleated Red Blood Cells % 0.1 %; Red Blood Cells 5.06 10^6/uL (4.0-5.20); Red Cell Distribution Width 13.9 % (11.8-14.3); White Blood Cell 10.1 10^3/uL (4.4-10.8)
[2023-09-24 13:00] VITALS: BP 117/61; PULSE 59; RESP 16; TEMP 97.6; O2SAT 95
[2023-09-24] MEDS: MAGNESIUM SULFATE 1GM/100ML 100 ML IV SCH ×2 (14:43→18:00)
[2023-09-24] MEDS ORDERED: hydrOXYzine 25 MG TAB or CAP PO PRN (16:00)
[2023-09-24 17:00] VITALS: BP 120/59; PULSE 61; RESP 16; TEMP 98; O2SAT 96
[2023-09-24 20:00] VITALS: PULSE 63
[2023-09-25 05:18] VITALS: BP 127/80; PULSE 67; RESP 18; TEMP 97.7; O2SAT 95
[2023-09-25 08:00] VITALS: PULSE 63
[2023-09-25 09:00] VITALS: BP 112/64; PULSE 71; RESP 18; TEMP 97.8; O2SAT 95
[2023-09-25] MEDS ORDERED: CITALOPRAM HYDROBR 20 MG TAB PO SCH (10:00)
[2023-09-25] MEDS ORDERED: CEPH250C PO (11:55)
[2023-09-25 13:00] VITALS: BP 121/57; PULSE 78; RESP 18; TEMP 98.7; O2SAT 94
[2023-09-25 14:37] VITALS: BP 129/65; PULSE 78; RESP 20; TEMP 98.3
== END 2023-09-25 16:00 | disposition home or self-care (01) | DRG 469 ==
LOC: EDBD 17:01 → ER 17:01 → EDSEX 17:01 → TELE-WESTW 22:52 → TELE 22:52 → TELE-WESTW 09-23 09:50
PROVIDERS: ADMIT Nurse Practitioner Family; ATTEND Internal Medicine
DX: N17.9 Acute kidney failure, unspecified (principal); J96.20 Acute and chronic respiratory failure, unspecified whether with hypoxia or hypercapnia; G93.41 Metabolic encephalopathy; G30.9 Alzheimer's disease, unspecified; F02.80 Dementia in other diseases classified elsewhere, unspecified severity, without behavioral disturbance, psychotic disturbance, mood disturbance, and anxiety; J44.1 Chronic obstructive pulmonary disease with (acute) exacerbation; E86.0 Dehydration; Z99.81 Dependence on supplemental oxygen; E83.42 Hypomagnesemia; N20.0 Calculus of kidney; N39.0 Urinary tract infection, site not specified; E78.00 Pure hypercholesterolemia, unspecified; I12.9 Hypertensive chronic kidney disease with stage 1 through stage 4 chronic kidney disease, or unspecified chronic kidney disease; N18.32 Chronic kidney disease, stage 3b; B96.20 Unspecified Escherichia coli [E. coli] as the cause of diseases classified elsewhere; Z85.3 Personal history of malignant neoplasm of breast; Z86.73 Personal history of transient ischemic attack (TIA), and cerebral infarction without residual deficits; Z83.3 Family history of diabetes mellitus; Z82.49 Family history of ischemic heart disease and other diseases of the circulatory system
CPT/HCPCS: 36415; 76775; 80053; 81001; 82306; 82962; 83036; 83605; 83735; 83970; 84100; 84484; 85025; 87040; 87086; 87088; 87186; 99291; G0378